=== PATIENT | female | born 2000 | race Two or more races ===

== ENCOUNTER 2019-07-05 11:49 | Emergency (ER) | payer BC ==
[~2019-07-05] VITALS: Ht 157.5 cm; Wt 63.7 kg
--- NOTE | 2019-07-05 13:31 | NUR ---
PT PRESENTING TO ER AFTER RUN THIS MORNING CAUSING CHEST TIGHTNESS, SOB AND METALIC TASTE IN MOUTH. CONNECTED TO ALL MONITORING, VSS. PT REPORTS TAKING CONTROL, NO OTHER MEDS. FAMILY AT BEDSIDE. STS SYMPTOMS HAVE RESOLVED MOSTLY NOW, SLIGHT CHEST TIGHTNESS REMAINS. CALL LIGHT WITHIN REACH. AWAITING TEST RESULTS AT THIS TIME
--- NOTE | 2019-07-05 13:35 | NUR ---
ALL RESULTS BACK AT THIS TIME, CHART UP FOR RECHECK
[2019-07-05 14:04] VITALS: BP 103/65
--- NOTE | 2019-07-05 14:14 | NUR ---
REPORT GIVEN TO KEITH RAMIREZ.
--- NOTE | 2019-07-05 15:17 | NUR ---
Patient/Caregiver given discharge instructions and they have confirmed that they understand the instructions. Patient ambulatory with steady gait.
== END 2019-07-05 15:19 | disposition home or self-care (01) ==
LOC: ED 12:53
DX: R07.89 Other chest pain (principal); M54.9 Dorsalgia, unspecified; J45.909 Unspecified asthma, uncomplicated
CPT/HCPCS: 36415; 71045; 85379; 93005; 99284